=== PATIENT | male | born 1955 | race Caucasian/White ===

== ENCOUNTER 2021-09-12 03:45 | Day surgery (SDC) | payer OTHER, SELFPAY ==
[2021-09-01 15:00] VITALS: BMI 26.2
--- NOTE | 2021-09-11 12:32 | PM.HPGS ---
History of Present Illness History of Present Illness Consent: Risks, benefits, and alternatives have been discussed and questions answered. Patient agrees to proceed with procedure. Chief complaint: family hx of colon ca Narrative: James Ford is a 65 year old male who is here for colon cancer screening. His mother had colon cancer Review of Systems Review of Systems: All systems reviewed & are unremarkable except as noted in HPI and below PMFSH Social History Social History Smoking packs per day: 0.25 Smoking cigarettes per day: 5.0 Years smoked: 5 Smoking pack-years: 1.25 Smoking status: Former smoker Tobacco type: cigarettes Second hand tobacco smoke exposure: No Alcohol intake: never Substance use: never Substance use type: does not use Living arrangements: with family Meds Home Medications and Allergies Home Medications Medication Instructions Recorded Confirmed Type simvastatin 10 mg tablet 10 mg PO DAILY #90 tablet 08/05/20 09/12/21 Rx aspirin 81 mg tablet,delayed 81 mg PO DAILY #90 tablet 08/08/20 09/12/21 Rx release omega 0-evq-gpc-fish oil 60 mg-90 1 cap PO DAILY #90 cap 08/08/20 09/12/21 Rx mg-500 mg capsule blood-glucose meter #1 ea 10/10/20 09/12/21 Rx lancets #100 ea 10/10/20 09/12/21 Rx blood sugar diagnostic #300 ea 10/11/20 09/12/21 Rx pen needle, diabetic 32 gauge x #100 ea 10/11/20 09/12/21 Rx 1/4 lisinopril 20 1 tablet PO DAILY #90 tablet 04/21/21 09/12/21 Rx mg-hydrochlorothiazide 12.5 mg tablet sitagliptin 100 mg tablet 100 mg PO DAILY #90 tablet 04/21/21 09/12/21 Rx amlodipine 2.5 mg tablet 2.5 mg PO DAILY #90 tablet 07/18/21 09/12/21 Rx dapagliflozin 5 mg-metformin ER 1 tablet PO BID #180 ea 07/29/21 09/12/21 Rx 1,000 mg tablet,extended release 24hr Allergies Allergy/AdvReac Type Severity Reaction Status Date / Time No Known Allergies Allergy Verified 09/12/21 08:37 Exam Resp: Auscultation: clear to auscultation bilaterally Cardio: Rate: regular rate Rhythm: regular rhythm GI: GI Palp: Yes Soft to palpation and No Tenderness to palpation present (GI) Assessment and Plan Assessment and plan (1) Colon cancer screening: Code(s): Z12.11 - Encounter for screening for malignant neoplasm of colon Status: Acute Assessment and Plan: Colonoscopy with possible biopsy or polypectomy or cautery or injection of substances.
[2021-09-12 08:38] VITALS: BP 147/100; PULSE 103; RESP 16; TEMP 36; O2SAT 98
[2021-09-12] MEDS: LACTATED RINGERS 1,000 ML 150 ML IV CONT (08:51)
[2021-09-12 08:57] LABS: Glucose Point of Care 155 mg/dl (65-105)
--- NOTE | 2021-09-12 09:24 | WPDANESEPPF ---
Anes - Initial Pre Proc Eval Procedure: Operation Date: 09/12/21 09:30 Proposed Procedures p Screening Colonoscopy - Young Reid MD Date/Time: 09/12/21 09:24 Surgeon: Young Reid MD Pre Op Diagnosis: family hx of colon ca Patient Data Age: 65 Gender: M Height: 1.85 m Weight: 85.7 kg Last Vital Signs Temp 36.0 C L 09/12/21 08:38 Pulse 103 H 09/12/21 08:38 Resp 16 09/12/21 08:38 BP 147/100 H 09/12/21 08:38 Pulse Ox 98 09/12/21 08:38 Allergies Allergy/AdvReac Type Severity Reaction Status Date / Time No Known Allergies Allergy Verified 09/12/21 08:37 Home Medications Medication Instructions Recorded Confirmed Type simvastatin 10 mg tablet 10 mg PO DAILY #90 tablet 08/05/20 09/12/21 Rx aspirin 81 mg tablet,delayed 81 mg PO DAILY #90 tablet 08/08/20 09/12/21 Rx release omega 6-ucu-dhr-fish oil 60 mg-90 1 cap PO DAILY #90 cap 08/08/20 09/12/21 Rx mg-500 mg capsule blood-glucose meter #1 ea 10/10/20 09/12/21 Rx lancets #100 ea 10/10/20 09/12/21 Rx blood sugar diagnostic #300 ea 10/11/20 09/12/21 Rx pen needle, diabetic 32 gauge x #100 ea 10/11/20 09/12/21 Rx 1/4 lisinopril 20 1 tablet PO DAILY #90 tablet 04/21/21 09/12/21 Rx mg-hydrochlorothiazide 12.5 mg tablet sitagliptin 100 mg tablet 100 mg PO DAILY #90 tablet 04/21/21 09/12/21 Rx amlodipine 2.5 mg tablet 2.5 mg PO DAILY #90 tablet 07/18/21 09/12/21 Rx dapagliflozin 5 mg-metformin ER 1 tablet PO BID #180 ea 07/29/21 09/12/21 Rx 1,000 mg tablet,extended release 24hr Laboratory Tests 09/12/21 08:55 POC Capillary Glucose 155 mg/dl H mg/dl (65-105) Patient hx anesthesia problems: none Family hx anesthesia problems: none Results Review: All pre-operative results and documents have been reviewed as part of the pre-operative evaluation. [facility] Past Medical History Medical History Essential hypertension Mixed hyperlipidemia Overweight (BMI 25.0-29.9) Type 2 diabetes mellitus without complication Social History Social History Smoking packs per day: 0.25 Smoking cigarettes per day: 5.0 Years smoked: 5 Smoking pack-years: 1.25 Smoking status: Former smoker Tobacco type: cigarettes Second hand tobacco smoke exposure: No Alcohol intake: never Substance use: never Substance use type: does not use Living arrangements: with family Anes - Eval Final PreProcedure Day of Procedure 09/12/21 09:24 Patient weight: overweight Heart: regular rate and rhythm Lungs: clear to auscultation Airway: Mallampati scale class II Neurological: alert and oriented Last oral intake: >/= 8 hours ASA classification: III Emergent: no Anesthetic plan: proceed Anesthesia type and monitoring: general GIVS and standard monitoring Results Review: All pre-operative results and documents have been reviewed as part of the pre-operative evaluation. Informed Consent: The patient's anesthetic plan and its attendant risks and benefits were discussed with the patient/family/POA. Questions were solicited and answers provided to the satisfaction of the patient/family/POA.
[2021-09-12 09:49] VITALS: BP 101/67; PULSE 82; RESP 24; O2SAT 98
[2021-09-12 09:59] VITALS: BP 135/81; PULSE 77; RESP 16; O2SAT 98
[2021-09-12 10:09] VITALS: BP 139/79; PULSE 72; RESP 16; O2SAT 100
== END 2021-09-12 10:15 | disposition home or self-care (01) ==
PROVIDERS: PCP Internal Medicine; Visit Provider Internal Medicine Gastroenterology
PROC: 0DJD8ZZ Inspection of Lower Intestinal Tract, Via Natural or Artificial Opening Endoscopic (ICD-10-PCS; CPT 45378; principal; 2021-09-12 09:30)
DX: Z12.11 Encounter for screening for malignant neoplasm of colon (principal); Z80.0 Family history of malignant neoplasm of digestive organs; Z79.82 Long term (current) use of aspirin; I10 Essential (primary) hypertension; E78.2 Mixed hyperlipidemia; E11.9 Type 2 diabetes mellitus without complications; Z87.891 Personal history of nicotine dependence
CPT/HCPCS: 45378; 82948; J2001; J2704; J7120

== ENCOUNTER → 2022-09-23 09:19 | Outpatient (CLI) | payer OTHER, SELFPAY ==
--- NOTE | ~2022-09-23 | XR_ITS ---
XR foot RT min 3V DATE: 09/23/2022 09:30 INDICATION: Lump on dorsum of foot for 2 months after a pop and pain when flexing foot. TECHNIQUE: 4 views COMPARISON: None FINDINGS: There is mild osteoarthritis at the first metatarsophalangeal joint. At the area of reported lump on the dorsum of the foot in the tarsal-metatarsal area there is a trian gular bony density measuring roughly 3.5 x 6 mm, which may represent a small avulsion fracture at the dorsal tarsometatarsal area versus accessory ossicle or prominence spur. CT examination would be hel pful for more definitive evaluation. No other fracture or dislocation, periosteal reaction or bone destruction is noted. Slight plantar and mild posterior calcaneal enthesopathy. IMPRESSION: Possible cortical avulsion fracture versus accessory ossicle or spurring at the dorsal ta rsometatarsal area; CT examination would be helpful for more definitive evaluation Reviewed, dictated and finalized at location A. [employer] WORK[employer] IMPRESSION: Possible cortical avulsion fracture versus accessory ossicle or spu rring at the dorsal tarsometatarsal area; CT examination would be helpful for m ore definitive evaluation
== END ==
PROVIDERS: PCP Family Medicine; Visit Provider Family Medicine
DX: M79.671 Pain in right foot (principal); R22.41 Localized swelling, mass and lump, right lower limb
CPT/HCPCS: 73630